=== PATIENT | female | born 1980 | race African-American/Black ===

== ENCOUNTER → 2022-01-12 | Outpatient (CLI) | payer OTHER | LOC: MHCPAIN 11:01 | DX: M53.3 Sacrococcygeal disorders, not elsewhere classified (principal) | CPT/HCPCS: J3301; Q9967 ==

== ENCOUNTER → 2022-02-04 | Outpatient (CLI) | payer OTHER | LOC: MHCPAIN 16:01 | DX: M53.3 Sacrococcygeal disorders, not elsewhere classified (principal); M54.50 Low back pain, unspecified; R10.2 Pelvic and perineal pain | CPT/HCPCS: G0463 ==

== ENCOUNTER → 2022-05-19 | Outpatient (CLI) | payer OTHER | LOC: MHCPAIN 11:33 | DX: M54.50 Low back pain, unspecified (principal); M53.3 Sacrococcygeal disorders, not elsewhere classified; M25.551 Pain in right hip; R20.2 Paresthesia of skin | CPT/HCPCS: G0463 ==

== ENCOUNTER → 2023-03-18 | Outpatient (CLI) | payer OTHER | LOC: MHCPAIN 14:12 | DX: M54.31 Sciatica, right side (principal); M79.18 Myalgia, other site | CPT/HCPCS: J3301 ==

== ENCOUNTER → 2023-05-20 | Outpatient (CLI) | payer OTHER ==
[~2023-05-20] MED LIST: Gadoterate 20 ML VIAL IV ONE
== END ==
LOC: COL.RAD 07:30
DX: Z51.0 Encounter for antineoplastic radiation therapy (principal); C53.8 Malignant neoplasm of overlapping sites of cervix uteri; C34.32 Malignant neoplasm of lower lobe, left bronchus or lung; C77.5 Secondary and unspecified malignant neoplasm of intrapelvic lymph nodes
CPT/HCPCS: A9575

== ENCOUNTER → 2023-05-21 | Outpatient (CLI) | payer OTHER | LOC: COL.RAD 07:41 | DX: Z51.0 Encounter for antineoplastic radiation therapy (principal); C53.8 Malignant neoplasm of overlapping sites of cervix uteri; C77.5 Secondary and unspecified malignant neoplasm of intrapelvic lymph nodes | CPT/HCPCS: A9575 ==

== ENCOUNTER → 2023-08-10 | Outpatient (CLI) | payer OTHER | LOC: MHCPAIN 10:18 | DX: M54.50 Low back pain, unspecified (principal); M79.2 Neuralgia and neuritis, unspecified; M25.551 Pain in right hip; Z90.711 Acquired absence of uterus with remaining cervical stump | CPT/HCPCS: G0463 ==

== ENCOUNTER → 2023-11-25 | Outpatient (CLI) | payer OTHER | LOC: MHCPAIN 14:24 | DX: M54.50 Low back pain, unspecified (principal); M79.2 Neuralgia and neuritis, unspecified; M25.551 Pain in right hip; Z90.711 Acquired absence of uterus with remaining cervical stump | CPT/HCPCS: G0463 ==

== ENCOUNTER → 2023-12-01 | Outpatient (CLI) | payer OTHER | LOC: MHCPAIN 11:09 | DX: M51.36 Other intervertebral disc degeneration, lumbar region (principal); M25.551 Pain in right hip; M79.2 Neuralgia and neuritis, unspecified; E11.9 Type 2 diabetes mellitus without complications; Z79.84 Long term (current) use of oral hypoglycemic drugs | CPT/HCPCS: G0463 ==

== ENCOUNTER 2023-12-23 15:08 | Outpatient (RCR) | payer OTHER | END 2023-12-27 | disposition home or self-care (01) | LOC: WSPT | DX: Z51.0 Encounter for antineoplastic radiation therapy (principal); C53.9 Malignant neoplasm of cervix uteri, unspecified; C53.8 Malignant neoplasm of overlapping sites of cervix uteri; C77.5 Secondary and unspecified malignant neoplasm of intrapelvic lymph nodes ==

== ENCOUNTER → 2023-12-23 | Outpatient (CLI) | payer OTHER | LOC: MHCPAIN 10:32 | DX: M47.817 Spondylosis without myelopathy or radiculopathy, lumbosacral region (principal); M54.50 Low back pain, unspecified | CPT/HCPCS: J0665 ==

== ENCOUNTER → 2023-12-29 | Outpatient (CLI) | payer OTHER | LOC: MHCPAIN 15:23 | DX: M47.897 Other spondylosis, lumbosacral region (principal); M54.17 Radiculopathy, lumbosacral region; M25.551 Pain in right hip; E11.40 Type 2 diabetes mellitus with diabetic neuropathy, unspecified; Z79.84 Long term (current) use of oral hypoglycemic drugs | CPT/HCPCS: G0463 ==